=== PATIENT | female | born 1980 | race African-American/Black ===

== ENCOUNTER 2017-08-22 01:54 | Emergency (ER) | payer SELFPAY ==
[~2017-08-22] VITALS: Ht 162.6 cm; Wt 99.0 kg
[2017-08-22] MEDS ORDERED: KETOROLAC 30MG/ML VIAL IV ONE (05:00)
[2017-08-22] MEDS ORDERED: ONDANSETRON 4MG ODT PO ONE (05:00)
[2017-08-22] MEDS ORDERED: HYDROCODONE/ACETAMINOPHEN 5/325MG TABLET PO ONE (05:30)
[2017-08-22 06:48] VITALS: BP 122/81
== END 2017-08-22 06:55 | disposition home or self-care (01) ==
LOC: ER 02:19
DX: S83.91XA Sprain of unspecified site of right knee, initial encounter (principal); W01.0XXA Fall on same level from slipping, tripping and stumbling without subsequent striking against object, initial encounter; Y93.89 Activity, other specified; Y92.018 Other place in single-family (private) house as the place of occurrence of the external cause
CPT/HCPCS: 73562; 96374; 99284; J1885; L1830; Q0162; Z7610

== ENCOUNTER 2018-03-18 20:02 | Emergency (ER) | payer SELFPAY ==
[~2018-03-18] VITALS: Ht 160 cm; Wt 91.0 kg
[2018-03-18] MEDS ORDERED: IBUPROFEN 800MG TABLET PO ONE (23:15)
[2018-03-18 23:46] VITALS: BP 131/79
== END 2018-03-19 00:07 | disposition home or self-care (01) ==
LOC: ER 21:41
DX: S16.1XXA Strain of muscle, fascia and tendon at neck level, initial encounter (principal); M54.5 Low back pain; J45.909 Unspecified asthma, uncomplicated; V49.88XA Car occupant (driver) (passenger) injured in other specified transport accidents, initial encounter; Y93.89 Activity, other specified; Y99.8 Other external cause status; Y92.410 Unspecified street and highway as the place of occurrence of the external cause; Z98.890 Other specified postprocedural states
CPT/HCPCS: 81025; 99283